=== PATIENT | female | born 1945 | race Caucasian/White ===

== ENCOUNTER 2019-08-11 16:17 | Inpatient (IN) | payer MEDICARE, BC ==
[~2019-08-11] VITALS: Ht 165.1 cm; Wt 67.9 kg
[2019-08-11] MEDS ORDERED: ALENDRONATE SOD35 MG PO (16:24)
[2019-08-11] MEDS ORDERED: BAYER CHEWABLE81 MG PO (16:24)
[2019-08-11] MEDS ORDERED: HYDROCODON-ACE1 EA10 PO (16:25)
[2019-08-11] MEDS ORDERED: LAMICTAL150 M1 PO (16:25)
[2019-08-11] MEDS ORDERED: LISINOPRIL5 MG PO (16:25)
[2019-08-11] MEDS ORDERED: LOVASTATIN40 MG PO (16:25)
[2019-08-11] MEDS ORDERED: GLUCOPHAGE500 MG PO (16:26)
[2019-08-11] MEDS ORDERED: METHOCARBAMOL750 MG PO (16:26)
[2019-08-11] MEDS ORDERED: PROPRANOLOL HCL20 MG PO (16:26)
[2019-08-11] MEDS ORDERED: HEALTHYLAX17 GM PO (16:26)
[2019-08-11] MEDS ORDERED: XANAX0.5 MG PO (16:27)
[2019-08-11] MEDS ORDERED: EFFEXOR XR150 MG PO (16:27)
[2019-08-11] MEDS ORDERED: TRAZODONE HCL150 MG PO (16:27)
[2019-08-11 16:58] LABS: BASOPHILS 0.3 % (0-2); EOSINOPHILS 1.7 % (0-7); HEMATOCRIT 41.1 % (36.0-48.0); HEMOGLOBIN 13.7 g/dL (12-16); IMMATURE GRANULOCYTES 0.5 % (0-5); LYMPHOCYTES 10.3 % (15-50); MCH 30.2 pg (26.0-34.0); MCHC 33.3 g/dL (31.0-37.0); MCV 90.7 fL (80.0-100.0); MEAN PLATELET VOLUME 8.5 fL (7.4-10.4); MONOCYTES 8.9 % (2-11); NEUTROPHILS 78.3 % (40-80); PLATELET COUNT 261 10x3/uL (130-400); RBC 4.53 10x6/uL (4.00-5.40); RDW 13.7 % (11.5-14.5); WBC 10.1 10x3/uL (4.8-10.8)
[2019-08-11 17:10] LABS: CALC OSMOLALITY 271 mosm/kg (275-300); CALCIUM 8.3 mg/dL (8.5-10.1); CARBON DIOXIDE 25.1 mmol/L (21.0-32.0); CHLORIDE - SERUM 100 mmol/L (98-107); CREATININE - SERUM 0.6 mg/dL (0.6-1.3); GLUCOSE 121 mg/dL (74-106); SODIUM 136 mmol/L (136-145); UREA NITROGEN 10 mg/dL (7-18); eGFR NON AFRICAN AMERICAN > 90 mL/min (90-120)
[2019-08-11 17:16] LABS: ALBUMIN 3.2 g/dL (3.4-5.0); ALKALINE PHOSPHATASE 67 U/L (46-116); ALT (SGPT) 23 U/L (10-68); BILIRUBIN - TOTAL 0.32 mg/dL (0.2-1.3); PROTEIN - SERUM 6.5 g/dL (6.4-8.2)
[2019-08-11 17:22] LABS: INR 1.02 (0.85-1.17); PROTIME 12.9 SECONDS (11.6-15.0)
[2019-08-11 17:39] LABS: APPEARANCE CLEAR (CLEAR); BACTERIA FEW /hpf (NEGATIVE); BILIRUBIN NEGATIVE (NEGATIVE); COLOR YELLOW (YELLOW); EPITHELIAL CELLS OCC /hpf (0-5); GLUCOSE NEGATIVE (NEGATIVE); KETONE MODERATE mg/dL (NEGATIVE); NITRITE NEGATIVE (NEGATIVE); PROTEIN NEGATIVE (NEGATIVE); RED CELLS - URINE 0-5 /hpf (0-5); UROBILINOGEN NORMAL (NORMAL); WHITE CELLS - URINE OCC /hpf (NEGATIVE)
[2019-08-11] MEDS ORDERED: BUSPAR 15 MG TA15 MG PO (22:34)
[2019-08-12] VITALS (7 sets, daily range): BP systolic 134–160; BP diastolic 54–74; Ht 165.1 cm; Wt 67.9 kg
--- NOTE | 2019-08-12 05:05 | NUR ---
22G TO LEFT HAND WAS PULLED OUT. CATHETER TIP INTACT. UNALBE TO PLACE A 20G PIV X6 ATTEMPTS BY MULTIPLE DIFFERENT NURSES. 22G PLACED TO LEFT FA. NS AT 50. NO FURTHER NEEDS EXPRESSED. WILL CTM.
[2019-08-12 05:10] LABS: BASOPHILS 0.3 % (0-2); EOSINOPHILS 1.3 % (0-7); HEMATOCRIT 40.3 % (36.0-48.0); HEMOGLOBIN 13.1 g/dL (12-16); IMMATURE GRANULOCYTES 0.4 % (0-5); LYMPHOCYTES 15.3 % (15-50); MCH 29.8 pg (26.0-34.0); MCHC 32.5 g/dL (31.0-37.0); MCV 91.6 fL (80.0-100.0); MEAN PLATELET VOLUME 8.8 fL (7.4-10.4); MONOCYTES 9.4 % (2-11); NEUTROPHILS 73.3 % (40-80); PLATELET COUNT 255 10x3/uL (130-400); RDW 13.9 % (11.5-14.5); WBC 7.9 10x3/uL (4.8-10.8)
[2019-08-12 05:31] LABS: CALC OSMOLALITY 276 mosm/kg (275-300); CALCIUM 7.7 mg/dL (8.5-10.1); CARBON DIOXIDE 26.8 mmol/L (21.0-32.0); CHLORIDE - SERUM 104 mmol/L (98-107); CREATININE - SERUM 0.5 mg/dL (0.6-1.3); GLUCOSE 103 mg/dL (74-106); PHOSPHOROUS 3.6 mg/dL (2.5-4.9); POTASSIUM - SERUM 4.2 mmol/L (3.5-5.1); SODIUM 139 mmol/L (136-145); UREA NITROGEN 11 mg/dL (7-18); eGFR NON AFRICAN AMERICAN > 90 mL/min (90-120)
--- NOTE | 2019-08-12 07:48 | NUR ---
PT RECEIVED AWAKE AND ALERT. BREAKFAST TRAY REMOVED PRIOR TO PT EATING DUE TO NPO FOR MRI.
--- NOTE | 2019-08-12 14:05 | NUR ---
PT HAD TWO BM'S TODAY THAT ARE WATERY AND BROWN. NO SOLID MATERIAL NOTED.
--- NOTE | 2019-08-12 14:10 | NUR ---
ORDER FOR TELEMETY NOTED, UNABLE TO PLACE AT PRESENT DUE TO AVAILABILITY.
--- NOTE | 2019-08-12 19:09 | NUR ---
REPORT RECEIVED. PT RESTING IN BED WATCHING TV. SON AT BEDSIDE. RR EVEN AND UNLABORED ON RA. NO S/SX OF DISTRESS OBSERVED. NO NEEDS EXPRESSED. CALL LIGHT IN REACH. WILL CTM.
[2019-08-13 00:21] VITALS: BP 130/57
[2019-08-13 04:49] VITALS: BP 140/55
[2019-08-13 05:21] LABS: BASOPHILS 0.2 % (0-2); EOSINOPHILS 1.6 % (0-7); HEMATOCRIT 40.7 % (36.0-48.0); HEMOGLOBIN 13.3 g/dL (12-16); IMMATURE GRANULOCYTES 0.3 % (0-5); MCH 29.8 pg (26.0-34.0); MCHC 32.7 g/dL (31.0-37.0); MCV 91.3 fL (80.0-100.0); MEAN PLATELET VOLUME 8.7 fL (7.4-10.4); MONOCYTES 9.8 % (2-11); NEUTROPHILS 72.1 % (40-80); PLATELET COUNT 281 10x3/uL (130-400); RBC 4.46 10x6/uL (4.00-5.40); RDW 13.8 % (11.5-14.5); WBC 9.1 10x3/uL (4.8-10.8)
[2019-08-13 05:38] LABS: CALC OSMOLALITY 273 mosm/kg (275-300); CALCIUM 7.6 mg/dL (8.5-10.1); CARBON DIOXIDE 21.5 mmol/L (21.0-32.0); CHLORIDE - SERUM 104 mmol/L (98-107); CREATININE - SERUM 0.6 mg/dL (0.6-1.3); GLUCOSE 100 mg/dL (74-106); MAGNESIUM - SERUM 2.8 mg/dL (1.8-2.4); PHOSPHOROUS 2.9 mg/dL (2.5-4.9); POTASSIUM - SERUM 4.1 mmol/L (3.5-5.1); SODIUM 138 mmol/L (136-145); eGFR NON AFRICAN AMERICAN > 90 mL/min (90-120)
[2019-08-13 05:49] LABS: UREA NITROGEN 8 mg/dL (7-18)
[2019-08-13 07:53] VITALS: BP 165/57
--- NOTE | 2019-08-13 07:55 | NUR ---
PATIENT IS SITTING UP IN BED. SHE IS ALERT AND ORIENTED. SHE DENIES ANY NEEDS AT THIS TIME.
[2019-08-13 11:28] VITALS: BP 166/88
[2019-08-13 15:32] VITALS: BP 166/68
--- NOTE | 2019-08-13 16:48 | NUR ---
PATIENT IS EATTING DINNER NOW, NICKI MOMIN SAYS IF SHE TOLERATES IT WELL, SHE CAN BE DISCHARGED.
--- NOTE | 2019-08-13 17:45 | NUR ---
PATIENT IS BEING DISCHARGED. IV REMOVED FROM LEFT FOREARM CATHETER INTACT. DISCARGE TEACHING COMPLETED AND PAPERS SIGNED. PATIENT IS REMOVING ALL HER BELONGINGS FROM THE ROOM AND SHE IS GOING DOWNSTAIRS BY WHEELCHAIR. SHE TOLERATED HER MEAL WELL. SHE IS GOING HOME WITH FAMILY.
--- NOTE | 2019-08-13 19:46 | MORECARE ---
CASE MANAGEMENT DISCHARGE SUMMARY PATIENT: SUMANTH LEWIS UNIT: [id number] ADM DATE: 08/12/19 AGE: 74 : 45 SEX: F ROOM/BED: D.2107 AUTHOR: DARCY SOLITARIO PHYSICIAN: REFERRING PHYSICIAN: EDY ALMANZA MD DATE OF SERVICE: 08/13/19 Discharge Plan Patient Name: SUMANTH LEWIS Facility: [facility]:[place] : 1945 Planned Disposition: Home Anticipated Discharge Date: 08/13/19 Discharge Date: 08/13/2019 Expected LOS: 1 Initial Reviewer: [email or web address] Initial Review Date: 08/11/2019 Generated: 08/13/19 8:46 pm Coverage Notice Reviewer: [email or web address] Tj Gaspar Notice Issued Date-Time: 08/12/2019 11:15 Notice Type: Medicare Outpatient Observation Notice Notice Delivered To: Patient Relationship to Patient: Self Back Closer Name: Delivery Method: HAND - Hand Delivered Marguerite Days: Prior Verbal Notification: Recipient Understood Notice: Yes Recipient Signature: Yes Med Rec Note Co-signed by Attending: Coverage Notice Comment: Patient Name: SUMANTH LEWIS Page [id number] at 194 All edits/amendments must be made on the electronic document DICTATION DATE: 08/13/191945 DE ALCHOLIZER: IFRAH 08/13/191945 RPT#: [id number] DC DATE:08/13/19 STATUS: DIS IN [place] [id number] [place] [address] END OF REPORT
== END 2019-08-13 18:02 | disposition home or self-care (01) | DRG 392 ==
LOC: D.ER 16:17 → D.M2 20:15 → OBSVTIME 08-12 16:00 → D.M2 08-12 16:05
PROVIDERS: Family Medicine; ADMIT Family Medicine; ATTEND Family Medicine
DX: K59.00 Constipation, unspecified (principal); I10 Essential (primary) hypertension; E11.9 Type 2 diabetes mellitus without complications; F41.8 Other specified anxiety disorders; R93.5 Abnormal findings on diagnostic imaging of other abdominal regions, including retroperitoneum